=== PATIENT | male | born 1945 | race Caucasian/White ===

== ENCOUNTER 2017-03-04 09:35 | Emergency (ER) | payer OTHER ==
[~2017-03-04] VITALS: Ht 170.2 cm; Wt 91.2 kg
[~2017-03-04 09:35] MED LIST: AMLO10TA2 PO; ATOR-24 PO; KFL500 PO; LISI40TA PO; MULT-884 PO; OYST500T47 PO; PANT1TAB48 PO
[2017-03-04 09:38] VITALS: TEMP 37.5; Ht 170.2 cm; Wt 91.2 kg
[2017-03-04] MEDS ORDERED: SODIUM CHLORIDE 0.9% 1000ML 1,000 ML IV STA ×2 (10:01→11:08)
[2017-03-04] MEDS ORDERED: ONDANSETRON INJ 2 MG/ML 2 ML VIAL IV STA (10:01)
[2017-03-04 10:36] LABS: ISTAT CREATININE 6.4 mg/dl (0.6-1.3); ISTAT HEMOGLOBIN 13.6 g/dl (14.0-18.0); ISTAT IONIZED CALCIUM 0.98 mmol/l (1.12-1.32)
[2017-03-04 10:51] LABS: ALKALINE PHOSPHATASE 73 U/L (45-117); ALT/SGPT 143 U/L (12-78); AST/SGOT 177 U/L (15-37); BLOOD UREA NITROGEN 64 mg/dl (7-18); CALCIUM 7.9 mg/dl (8.5-10.1); CARBON DIOXIDE 19 mmol/L (21-32); CHLORIDE 93 mmol/L (98-107); GLUCOSE 115 mg/dl (70-99); SODIUM 128 mmol/L (136-145)
[2017-03-04 10:59] LABS: HEMATOCRIT 38.2 % (42-52); MEAN CELL VOLUME 85.3 fL (80-100); MEAN CORPUSCULAR HEMOGLOBIN 30.4 pg (25-34); MEAN CORPUSCULAR HGB CONC 35.6 g/dl (32-36); MEAN PLATELET VOLUME 11.1 fL (7.4-10.4); PLATELET COUNT 35 K/uL (130-400); RED BLOOD COUNT 4.48 M/uL (4.7-6.1); WHITE BLOOD COUNT 3.07 K/uL (4.8-10.8)
--- NOTE | 2017-03-04 11:26 | DIAGNOSTIC IMAGING REPORT ---
CT SCAN OF THE ABDOMEN AND PELVIS WITHOUT IV CONTRAST CLINICAL HISTORY: Generalized abdominal pain. Nausea and vomiting. COMPARISON STUDY: No priors. TECHNIQUE: CT scan of the abdomen and pelvis is performed from the lung bases to the proximal femora. Images are reviewed in the axial, sagittal, and coronal planes. IV contrast was not administered for this examination as per the referring clinician. Note that the examination was performed and significant suboptimal fashion without oral and IV contrast. The examination is also degraded by motion artifact. Automated dose control exposure was utilized. CT DOSE: 626.22 mGy.cm FINDINGS: Lung bases: The heart is normal in size and there is trace pericardial fluid versus pericardial thickening. The coronary arteries are densely calcified. Scarring versus atelectasis is present at the right lung base. No airspace consolidation is identified typical for pneumonia and there is no pleural effusion. A tiny hiatal hernia is identified. Liver: The unenhanced liver is normal in size, contour, and attenuation. There is no intrahepatic biliary ductal dilatation. Gallbladder: Unremarkable. Spleen: Normal in size and attenuation. Pancreas: The unenhanced pancreas is moderately atrophic and grossly unremarkable. Adrenal glands: A 1.7 cm left adrenal nodule meets CT criteria for a fat-containing adenoma. The right adrenal gland is unremarkable. Kidneys: The unenhanced kidneys demonstrate cortical atrophy and are without hydronephrosis. There are no renal calculi identified. There is no evidence of contour deforming renal mass lesion. There is mild nonspecific bilateral perinephric stranding. Abdominal vasculature: The abdominal aorta is normal in course and caliber noting advanced atherosclerotic calcification. Bowel: The small bowel and colon are normal in course and caliber. The appendix is well-visualized and normal. Peritoneum: There is no intraperitoneal free air or abdominal ascites. There is a small fat-containing umbilical hernia. Lymphadenopathy: None. Pelvic viscera: The prostate gland is mildly enlarged and heterogeneous. The bladder wall is mildly thickened and trabeculated suggesting the sequelae of chronic outlet obstruction. Skeletal structures: The skeletal structures are osteopenic. No lytic or blastic lesions are seen. There is mild lumbosacral spondylosis. Healed left-sided rib fractures are noted. IMPRESSION: 1. Significantly suboptimal examination without oral and IV contrast. The examination is also degraded by motion artifact. 2. There are no acute infectious or inflammatory findings in the abdomen or pelvis. 3. Additional findings as above. Electronically signed by: Carlton Harkins M.D. 03/04/2017 11:24 AM Dictated Date/Time: 03/04/2017 11:17 AM
[2017-03-04 11:53] VITALS: O2SAT 93
[2017-03-04] MEDS ORDERED: CALCIUM GLUCONATE 10% 10 ML VIAL IV STA (12:03)
[2017-03-04 12:07] LABS: COMPLETE YES; LYMPH ABS # 0.34 K/uL (1.2-3.4); VACUOLIZATION 3+; VARIANT LYM ABS # 0.71 K/uL
[2017-03-04 12:10] LABS: PARTIAL THROMBOPLASTIN RATIO 1.3; PROTHROMBIN TIME (PATIENT) 10.5 SECONDS (9.0-12.0)
[2017-03-04 12:13] LABS: LARGE PLATELETS 1+; PLT ESTIMATE DECREASED
--- NOTE | 2017-03-04 13:01 | EMERGENCY ROOM VISIT NOTE ---
History First contact with patient: 09:55 Chief Complaint: VOMITING Stated Complaint: V, D, WEAK X 5 DAYS Nursing Triage Summary: p[t reports vomiting and diarrhea for past 5 days gets sob when walking upstairs to shower unable to keep anything down History of Present Illness The patient is a 71 year old male who presents to the Emergency Room with complaints of nausea, vomiting, diarrhea for the past 5 days. Patient reports some associated low-grade fevers and chills, and his notes that he has had several periods where he will would have chills and then sweat to the point of soaking through his shirt. He states for the past 2 days he has been feeling more fatigued and generally weak, tired, dizzy. He denies abdominal pain, chest pain, shortness of breath, vomiting blood, blood in the stool, dysuria, hematuria. He does note that his urine has been darker than normal and he is urinating less frequently than normal. He describes the diarrhea as loose, not watery, foul-smelling, 2-3 episodes a day, exacerbated by any oral intake take. He also states he is unable to tolerate any food without vomiting. He was able to keep down his normal medications this morning with a few sips of water. Patient denies any recent antibiotic use, recent travel, denies any sick contacts with similar symptoms. He does note that he ate at [employer] just prior to his symptoms starting and states that he had some hamburgers, but felt that they were fully cooked. Review of Systems GENERAL: + Fevers, chills, malaise, fatigue, sweats. Denies unintentional weight changes. HEENT: Denies dizziness, visual problems, hearing loss, tinnitus. Denies difficulty swallowing or oral lesions. PULMONARY: Denies cough, shortness of breath, sputum production or hemoptysis. CARDIOVASCULAR: Denies chest pain, palpitations, dyspnea on exertion, orthopnea or peripheral edema. GASTROINTESTINAL: + Nausea, vomiting, diarrhea, bloating. Denies constipation or abdominal pain. GENITOURINARY: Denies dysuria, frequency, urgency or nocturia. + Dark urine, decreased urine output. NEUROLOGIC: Denies history of epilepsy, CVA, TIA or chronic headaches. MUSCULOSKELETAL: Denies history of joint tenderness/swelling. SKIN: Denies rashes or lesions. PSYCHIATRIC: Denies history of depression or mental illness. ENDOCRINE: Denies history of diabetes, thyroid disorders, abnormal hair growth or sexual dysfunction. Past Medical/Surgical History Medical Problems: (1) Acute renal failure (2) Thrombocytopenia Social History Smoking Status: Never Smoker Housing Status: lives with family Current/Historical Medications Scheduled Amlodipine Besylate (Norvasc), 10 MG PO DAILY Atorvastatin (Lipitor), 40 MG PO DAILY Lisinopril (Zestril), 40 MG PO DAILY Multiple Vitamin (Multi Vitamin Daily), 1 TAB PO DAILY Pantoprazole (Protonix), 40 MG PO DAILY Allergies Coded Allergies: No Known Allergies (Unverified , 03/04/17) Physical Exam Vital Signs Date Time Temp Pulse Resp B/P (MAP) Pulse Ox O2 Delivery O2 Flow Rate FiO2 03/04/17 13:41 94 16 134/70 95 Room Air 03/04/17 12:22 89 03/04/17 11:53 93 Nasal Cannula 2.0 03/04/17 11:51 88 16 132/67 93 Nasal Cannula 2.0 03/04/17 11:08 89 16 129/68 95 Room Air 03/04/17 09:38 37.5 109 22 126/68 94 Room Air Physical Exam CONSTITUTIONAL: No acute distress. Nontoxic appearing. Moderately dehydrated. Alert and oriented X 4 with normal affect. HEENT: Normocephalic, atraumatic. Pupils equal, round and reactive to light, EOMI. TMs normal. Pharynx normal. Dry mucus membranes. NECK: Supple, full active range of motion without discomfort. RESPIRATORY: Clear to auscultation bilaterally with no wheezing, crackles, rhonchi or stridor. Equal expansion bilaterally. CARDIOVASCULAR: Regular rate and rhythm with no murmurs, rubs or gallops. Normal peripheral perfusion. No edema. GASTROINTESTINAL: Soft, nontender, nondistended. No rebound or guarding. Hypoactive bowel sounds. MUSCULOSKELETAL: Full range of motion of all joints without discomfort. INTEGUMENTARY: No rash or other significant dermatologic conditions noted. NEUROLOGIC: Cranial nerves II-XII grossly intact. No focal neurologic deficits noted. Medical Decision & Procedures ER Provider Diagnostic Interpretation: CT SCAN OF THE ABDOMEN AND PELVIS WITHOUT IV CONTRAST CLINICAL HISTORY: Generalized abdominal pain. Nausea and vomiting. COMPARISON STUDY: No priors. TECHNIQUE: CT scan of the abdomen and pelvis is performed from the lung bases to the proximal femora. Images are reviewed in the axial, sagittal, and coronal planes. IV contrast was not administered for this examination as per the referring clinician. Note that the examination was performed and significant suboptimal fashion without oral and IV contrast. The examination is also degraded by motion artifact. Automated dose control exposure was utilized. CT DOSE: 626.22 mGy.cm FINDINGS: Lung bases: The heart is normal in size and there is trace pericardial fluid versus pericardial thickening. The coronary arteries are densely calcified. Scarring versus atelectasis is present at the right lung base. No airspace consolidation is identified typical for pneumonia and there is no pleural effusion. A tiny hiatal hernia is identified. Liver: The unenhanced liver is normal in size, contour, and attenuation. There is no intrahepatic biliary ductal dilatation. Gallbladder: Unremarkable. Spleen: Normal in size and attenuation. Pancreas: The unenhanced pancreas is moderately atrophic and grossly unremarkable. Adrenal glands: A 1.7 cm left adrenal nodule meets CT criteria for a fat-containing adenoma. The right adrenal gland is unremarkable. Kidneys: The unenhanced kidneys demonstrate cortical atrophy and are without hydronephrosis. There are no renal calculi identified. There is no evidence of contour deforming renal mass lesion. There is mild nonspecific bilateral perinephric stranding. Abdominal vasculature: The abdominal aorta is normal in course and caliber noting advanced atherosclerotic calcification. Bowel: The small bowel and colon are normal in course and caliber. The appendix is well-visualized and normal. Peritoneum: There is no intraperitoneal free air or abdominal ascites. There is a small fat-containing umbilical hernia. Lymphadenopathy: None. Pelvic viscera: The prostate gland is mildly enlarged and heterogeneous. The bladder wall is mildly thickened and trabeculated suggesting the sequelae of chronic outlet obstruction. Skeletal structures: The skeletal structures are osteopenic. No lytic or blastic lesions are seen. There is mild lumbosacral spondylosis. Healed left-sided rib fractures are noted. IMPRESSION: 1. Significantly suboptimal examination without oral and IV contrast. The examination is also degraded by motion artifact. 2. There are no acute infectious or inflammatory findings in the abdomen or pelvis. 3. Additional findings as above. Laboratory Results 03/04/17 09:50 Red Blood Count 4.48, Mean Corpuscular Volume 85.3, Mean Corpuscular Hemoglobin 30.4, Mean Corpuscular Hemoglobin Concent 35.6, Mean Platelet Volume 11.1 03/04/17 09:50 Test 03/04/17 09:50 03/04/17 10:19 03/04/17 10:23 03/04/17 11:58 White Blood Count 3.07 K/uL (4.8-10.8) Red Blood Count 4.48 M/uL (4.7-6.1) Hemoglobin 13.6 g/dL (14.0-18.0) Hematocrit 38.2 % (42-52) Mean Corpuscular Volume 85.3 fL (80-100) Mean Corpuscular Hemoglobin 30.4 pg (25-34) Mean Corpuscular Hemoglobin Concent 35.6 g/dl (32-36) Platelet Count 35 K/uL (130-400) Mean Platelet Volume 11.1 fL (7.4-10.4) RDW Standard Deviation 43.0 fL (36.4-46.3) RDW Coefficient of Variation 13.7 % (11.5-14.5) Neutrophils % (Manual) 60.0 % Lymphocytes % (Manual) 11.0 % Variant Lymphocytes % (manual) 23.0 % Monocytes % (Manual) 6.0 % Neutrophils # (Manual) 1.84 K/uL (1.4-6.5) Total Absolute Neutrophils 1.84 K/uL (1.4-6.5) Lymphocytes # (Manual) 0.34 K/uL (1.2-3.4) Absolute Variant Lymphocytes 0.71 K/uL Total Absolute Lymphocytes 1.04 K/uL (1.2-3.4) Monocytes # (Manual) 0.18 K/uL (0.11-0.59) Toxic Vacuolation 3+ Platelet Estimate DECREASED Large Platelets 1+ Prothrombin Time 10.5 SECONDS (9.0-12.0) Prothromb Time International Ratio 1.0 (0.9-1.1) Activated Partial Thromboplast Time 33.3 SECONDS (21.0-31.0) Partial Thromboplastin Ratio 1.3 Est Creatinine Clear Calc Drug Dose 11.4 ml/min Estimated GFR () 9.3 Estimated GFR (Non- 8.0 BUN/Creatinine Ratio 10.0 (10-20) Calcium Level 7.9 mg/dl (8.5-10.1) Total Bilirubin 2.0 mg/dl (0.2-1) Direct Bilirubin mg/dl (0-0.2) Aspartate Amino Transf (AST/SGOT) 177 U/L (15-37) Alanine Aminotransferase (ALT/SGPT) 143 U/L (12-78) Alkaline Phosphatase 73 U/L (45-117) Total Protein 7.1 gm/dl (6.4-8.2) Albumin 3.2 gm/dl (3.4-5.0) Lipase 1400 U/L (73-393) Bedside Lactic Acid Venous 1.20 mmol/L (0.90-1.70) Bedside Hemoglobin 13.6 g/dl (14.0-18.0) Bedside Hematocrit 40 % (42-52) Bedside Sodium 128 mEq/L (135-144) Bedside Potassium 3.8 mEq/L (3.3-5.0) Bedside Chloride 95 mEq/L (101-112) Bedside Total CO2 18 mEq/l (24-31) Anion Gap 21.0 mmol/L (16-25) Bedside Blood Urea Nitrogen 58 mg/dl (7-18) Bedside Creatinine 6.4 mg/dl (0.6-1.3) Bedside Glucose (other) 115 mg/dl (70-99) Bedside Ionized Calcium ([place]) 0.98 mmol/l (1.12-1.32) Medications Administered Medications (Trade) Dose Ordered Sig/Vidal Route Start Time Stop Time Status Last Admin Dose Admin Sodium Chloride 1,000 ml @ 999 mls/hr Q1H1M STAT IV 03/04/17 10:01 03/04/17 11:01 DC 03/04/17 10:01 999 MLS/HR Ondansetron HCl (Zofran Inj) 4 mg NOW STAT IV 03/04/17 10:01 03/04/17 10:04 DC 03/04/17 10:52 4 MG Sodium Chloride 1,000 ml @ 999 mls/hr Q1H1M STAT IV 03/04/17 11:08 03/04/17 12:08 DC 03/04/17 11:08 999 MLS/HR Calcium Gluconate (Calcium Gluconate 10%) 1,000 mg NOW STAT IV 03/04/17 12:03 03/04/17 12:04 DC 03/04/17 13:06 1,000 MG ECG Indication: vomiting Rate (beats per minute): 95 Rhythm: normal sinus Findings: no acute ischemic change Medical Decision CC: Patient presenting with complaint of nausea, vomiting, diarrhea 5 days. Interpretation of Labs: Pancytopenia with low platelets, hyponatremia, hypocalcemia, acute renal failure with creatinine of 6.4 (previous baseline of 1.2 and no history of renal insufficiency), elevated liver enzymes and T bili, elevated lipase consistent with pancreatitis. Lactic acid within normal limits at 1.2 Differential Diagnosis: Includes, but not limited to gastroenteritis, gastritis , dehydration, electrolyte abnormality, cholecystitis, cholelithiasis, choledocholithiasis, pancreatitis, acute kidney injury, small bowel obstruction , diverticulitis, colitis infectious versus ischemic, sepsis. Summary: Patient was evaluated at bedside, history of physical exam performed. Patient is alert and in no acute distress, but appears to fatigued and feeling unwell. He also appears moderately dehydrated with dry skin and dry mucous membranes. He is afebrile on vital signs, noted to be mildly tachycardic in the low 100s. He has no complaints of pain. His abdomen is soft and nontender. Hypoactive bowel sounds are noted. Orders were placed at bedside for labs, urinalysis, IV fluids, IV Zofran, CT abdomen/pelvis to evaluate for intra-abdominal pathology. Patient discussed with Dr. Perry, who agrees with my assessment and plan. Nursing staff alerted me to [id number] creatinine elevated at 6.4, CT study changed to noncontrast. Potassium level within normal limits. Labs reviewed, concerning for multiple abnormalities including severe acute renal failure, pancytopenia, elevated lipase, and elevated liver enzymes. Stool studies were ordered but unable to be collected due to patient's inability to provide a sample. CT reviewed, limited study due to noncontrast, however no obvious bowel obstruction or infectious etiology noted. Given the elevation of liver enzymes in the setting of probable acute pancreatitis, right upper quadrant ultrasound was also ordered to evaluate for choledocholithiasis/pancreatitis, this study is pending. Patient's tachycardia resolved with IV fluid bolus x 2L, he remains afebrile and continues to be relatively well-appearing with no significant complaints. Patient clinical condition does not appear consistent with sepsis or high suspicion for bacteremia at this time, however given the complaints of low- grade fevers and chills at home and the multiple lab abnormalities, blood cultures were added for good measure. However, I do not feel that there is indication to start empiric broad-spectrum antibiotics at this time, especially in light of his poor renal function. I spoke with Dr. Phipps, hospitalist, on the phone regarding admission of this patient. She agrees to see the patient. I also spoke with Dr. Bone, molding fitter, who is happy to be involved in the patient's care. After evaluation by our inpatient team, the patient was deemed too complex for admission at this hospital. Discussion with Dr. Perry, decision was made to transfer the patient to [facility] for a higher level of care and further evaluation. Patient reassessed multiple times throughout ED stay, he remained stable and without any significant complaints, also noting that he feels better after IV fluids and antiemetics, and his vital signs have remained stable. Impression Primary Impression: Acute renal failure Additional Impressions: Pancytopenia Pancreatitis Critical Care I have personally spent greater than 30 minutes of critical care time in the direct management of this patient. This includes bedside care, interpretation of diagnostic studies, and testing, discussion with consultants, patient, and family members, and other required patient management activities. This 30 minutes is in excess of all separately billable procedures. Departure Information Dispostion Transfer Acute Care Facility Condition [facility] Referrals Teofilo Bach III, M.D. (PCP) Patient Instructions [facility] Problem Qualifiers Primary Impression: Acute renal failure Acute renal failure type: unspecified Qualified Codes: N17.9 - Acute kidney failure, unspecified Additional Impressions: Pancreatitis Chronicity: acute Pancreatitis type: unspecified pancreatitis type Acute pancreatitis complication: unspecified Qualified Codes: K85.90 - Acute pancreatitis without necrosis or infection, unspecified
--- NOTE | 2017-03-04 14:04 | History and Physical ---
History & Physical Date & Time of Service: Mar 04, 2017 at 13:34 Chief Complaint: V, D, Weak X 5 Days Primary Care Physician: Teofilo Bach III, M.D. History of Present Illness Source: patient, family Social History Smoking Status: Never Smoker Immunizations History of Influenza Vaccine: Yes Influenza Vaccine Date: Jun 15, 2014 History of Pneumococcal: Yes Pneumococcal Date: Jul 10, 2015 Allergies Coded Allergies: No Known Allergies (Unverified , 03/04/17) Home Medications Scheduled Amlodipine Besylate (Norvasc), 10 MG PO DAILY Atorvastatin (Lipitor), 40 MG PO DAILY Lisinopril (Zestril), 40 MG PO DAILY Multiple Vitamin (Multi Vitamin Daily), 1 TAB PO DAILY Pantoprazole (Protonix), 40 MG PO DAILY Physical Exam Vital Signs Date Time Temp Pulse Resp B/P (MAP) Pulse Ox O2 Delivery O2 Flow Rate FiO2 03/04/17 12:22 89 03/04/17 11:53 93 Nasal Cannula 2.0 03/04/17 11:51 88 16 132/67 93 Nasal Cannula 2.0 03/04/17 11:08 89 16 129/68 95 Room Air 03/04/17 09:38 37.5 109 22 126/68 94 Room Air Diagnostics Laboratory Results Results Past 24 Hours Test 03/04/17 09:50 03/04/17 10:19 03/04/17 10:23 03/04/17 11:58 Range/Units White Blood Count 3.07 4.8-10.8 K/uL Red Blood Count 4.48 4.7-6.1 M/uL Hemoglobin 13.6 14.0-18.0 g/dL Hematocrit 38.2 42-52 % Mean Corpuscular Volume 85.3 80-100 fL Mean Corpuscular Hemoglobin 30.4 25-34 pg Mean Corpuscular Hemoglobin Concent 35.6 32-36 g/dl Platelet Count 35 130-400 K/uL Mean Platelet Volume 11.1 7.4-10.4 fL RDW Standard Deviation 43.0 36.4-46.3 fL RDW Coefficient of Variation 13.7 11.5-14.5 % Neutrophils % (Manual) 60.0 % Lymphocytes % (Manual) 11.0 % Variant Lymphocytes % (manual) 23.0 % Monocytes % (Manual) 6.0 % Neutrophils # (Manual) 1.84 1.4-6.5 K/uL Total Absolute Neutrophils 1.84 1.4-6.5 K/uL Lymphocytes # (Manual) 0.34 1.2-3.4 K/uL Absolute Variant Lymphocytes 0.71 K/uL Total Absolute Lymphocytes 1.04 1.2-3.4 K/uL Monocytes # (Manual) 0.18 0.11-0.59 K/uL Toxic Vacuolation 3+ Platelet Estimate DECREASED Large Platelets 1+ Prothrombin Time 10.5 9.0-12.0 SECONDS Prothromb Time International Ratio 1.0 0.9-1.1 Activated Partial Thromboplast Time 33.3 21.0-31.0 SECONDS Partial Thromboplastin Ratio 1.3 Sodium Level 128 136-145 mmol/L Potassium Level 4.0 3.5-5.1 mmol/L Chloride Level 93 98-107 mmol/L Carbon Dioxide Level 19 21-32 mmol/L Anion Gap 16.0 21.0 16-25 mmol/L Blood Urea Nitrogen 64 7-18 mg/dl Creatinine 6.40 0.60-1.40 mg/dl Est Creatinine Clear Calc Drug Dose 11.4 ml/min Estimated GFR () 9.3 Estimated GFR (Non- 8.0 BUN/Creatinine Ratio 10.0 10-20 Random Glucose 115 70-99 mg/dl Calcium Level 7.9 8.5-10.1 mg/dl Total Bilirubin 2.0 0.2-1 mg/dl Direct Bilirubin 0-0.2 mg/dl Aspartate Amino Transf (AST/SGOT) 177 15-37 U/L Alanine Aminotransferase (ALT/SGPT) 143 12-78 U/L Alkaline Phosphatase 73 45-117 U/L Total Protein 7.1 6.4-8.2 gm/dl Albumin 3.2 3.4-5.0 gm/dl Lipase 1400 73-393 U/L Bedside Lactic Acid Venous 1.20 0.90-1.70 mmol/L Bedside Hemoglobin 13.6 14.0-18.0 g/dl Bedside Hematocrit 40 42-52 % Bedside Sodium 128 135-144 mEq/L Bedside Potassium 3.8 3.3-5.0 mEq/L Bedside Chloride 95 101-112 mEq/L Bedside Total CO2 18 24-31 mEq/l Bedside Blood Urea Nitrogen 58 7-18 mg/dl Bedside Creatinine 6.4 0.6-1.3 mg/dl Bedside Glucose (other) 115 70-99 mg/dl Bedside Ionized Calcium ([place]) 0.98 1.12-1.32 mmol/l Microbiology Results 03/04/17 Blood Culture, Received Pending 03/04/17 Blood Culture, Received Pending Impression VTE Prophylaxis VTE Risk Assessment Done? Y/N: Yes Risk Level: Moderate
[2017-03-04 14:06] VITALS: BP 137/71; PULSE 103; O2SAT 94
--- NOTE | 2017-03-04 22:57 | Medical Consult ---
Consultation Date of Consultation: Mar 04, 2017. Attending Physician: Susan Skinner DO Reason for Consultation: Asked to evaluate patient for admission by ER physicia- Dr. Perry. History of Present Illness 71 yo M presents with 5 days of worsening nausea, vomiting and diarrhea that is severe rendering him completely intolerant of PO, even small sips of water. He states this began suddenly after visiting his newly born grandchild in the hospital, then proceeding to another town to care for his son's dogs. He had stopped by [employer] that afternoon and had two cheeseburgers and a Sprite which "tasted funny" and states that immediately upon returning home his symptoms started. He also reports some trouble breathing and dyspnea on exertin that is new for him as well as postural dizziness. He reports [place] frequent [place], [place] well as at a friend of his closer into town. He denies any recent known tick bites - last bitten last year and took abx-but states that he knows ticks are around. A full skin exam today was unremarkable for eschar or other rash or signs of rickettsial disease. He reports using public water and [place] sewer at his home. He denies any bloody diarrhea, but states that he tried Imodium and PeptoBismol and this made his stool slightly blackish in color. He denies any abdominal pain and has no fevers or chills, but does have some drenching sweats in the past month or so. He denies headache, visual changes, coughing, chest pain. He denies any recent travel history and no sick contacts, krystyna children. He denies any recent use of thiazines, antibiotics, heaprin or other blood thinners , quinidine, denies drinking gin and tonics, denies sulfa use, vanc use, denies any recent or past blood or platelet transfusions. He denies excessive alcohol use. In the ER he was found to be in acute renal failure with a creat of 6.4 with normal function at baseline as well as a new onset thrombocytopenia with 35K platelets, no petechiae noted, and not bleeding reported. He denies any weight loss. Worlkup also reveals a mild transminase, hyponatremia (128), and a lipase of 1400 with a normal lactate. Past Medical/Surgical History Medical Problems: (1) Pancreatitis Status: Acute (2) Pancytopenia Status: Acute Family History Patient reports no known family medical history. Social History Smoking Status: Never Smoker Smokeless Tobacco Use: No Alcohol Use: occasionally Drug Use: none Marital Status: Housing Status: lives with significant other Occupation Status: retired Allergies Coded Allergies: No Known Allergies (Unverified , 03/04/17) Home Medications Active Reported Multi Vitamin Daily (Multiple Vitamin) 1 Tab Tab 1 Tab PO DAILY Lipitor (Atorvastatin Calcium) 40 Mg Tab 40 Mg PO DAILY Norvasc (Amlodipine Besylate) 10 Mg Tab 10 Mg PO DAILY Zestril (Lisinopril) 40 Mg Tab 40 Mg PO DAILY Protonix (Pantoprazole) 40 Mg Tab 40 Mg PO DAILY Current Inpatient Medications Medications (Trade) Dose Ordered Sig/Vidal Route Start Time Stop Time Status Last Admin Dose Admin Sodium Chloride 1,000 ml @ 999 mls/hr Q1H1M STAT IV 03/04/17 10:01 03/04/17 11:01 DC 03/04/17 10:01 999 MLS/HR Ondansetron HCl (Zofran Inj) 4 mg NOW STAT IV 03/04/17 10:01 03/04/17 10:04 DC 03/04/17 10:52 4 MG Sodium Chloride 1,000 ml @ 999 mls/hr Q1H1M STAT IV 03/04/17 11:08 03/04/17 12:08 DC 03/04/17 11:08 999 MLS/HR Calcium Gluconate (Calcium Gluconate 10%) 1,000 mg NOW STAT IV 03/04/17 12:03 03/04/17 12:04 DC 03/04/17 13:06 1,000 MG Review of Systems Ten systems reviewed and negative except as indicated in HPI. Physical Exam Date Time Temp Pulse Resp B/P (MAP) Pulse Ox O2 Delivery O2 Flow Rate FiO2 03/04/17 14:06 103 16 137/71 94 Nasal Cannula 2.0 03/04/17 13:41 94 16 134/70 95 Room Air 03/04/17 12:22 89 03/04/17 11:53 93 Nasal Cannula 2.0 03/04/17 11:51 88 16 132/67 93 Nasal Cannula 2.0 03/04/17 11:08 89 16 129/68 95 Room Air 03/04/17 09:38 37.5 109 22 126/68 94 Room Air GEN: WNWD, in no acute distress, alert and appropriate, some conversational dyspnea was noted. HEENT: NC/AT, PERRL, normal sclerae, normal conjunctivae, MMM, pharynx non- acute. CARDIO: reg rate, S1/2 heard without m/g/r LUNGS: CTA bilaterally, no crackles, rales or wheezes, good diaphragmatic excursion ABD: soft, non-tender, non-distended, no rebound or guarding, +BS EXTREMITY: RP and DP palpable 2+ bilat, no LE swelling or edema, extremities are warm and well-perfused NEURO: CN 2-12 intact, sensation intact throughout, coordination intact (reflexes) BR 2+ bilat, knee 2+ bilat, achilles 2+ bilat MUSC: 5/5 strength throughout, no focal deficits SKIN: warm and dry and notably no petechiae or ecchymosis present; also no eschar or evidence of insect bite. Laboratory Results 03/04/17 09:50 Red Blood Count 4.48, Mean Corpuscular Volume 85.3, Mean Corpuscular Hemoglobin 30.4, Mean Corpuscular Hemoglobin Concent 35.6, Mean Platelet Volume 11.1 03/04/17 09:50 Test 03/04/17 09:50 03/04/17 10:19 03/04/17 10:23 03/04/17 11:58 White Blood Count 3.07 K/uL (4.8-10.8) Red Blood Count 4.48 M/uL (4.7-6.1) Hemoglobin 13.6 g/dL (14.0-18.0) Hematocrit 38.2 % (42-52) Mean Corpuscular Volume 85.3 fL (80-100) Mean Corpuscular Hemoglobin 30.4 pg (25-34) Mean Corpuscular Hemoglobin Concent 35.6 g/dl (32-36) Platelet Count 35 K/uL (130-400) Mean Platelet Volume 11.1 fL (7.4-10.4) RDW Standard Deviation 43.0 fL (36.4-46.3) RDW Coefficient of Variation 13.7 % (11.5-14.5) Neutrophils % (Manual) 60.0 % Lymphocytes % (Manual) 11.0 % Variant Lymphocytes % (manual) 23.0 % Monocytes % (Manual) 6.0 % Neutrophils # (Manual) 1.84 K/uL (1.4-6.5) Total Absolute Neutrophils 1.84 K/uL (1.4-6.5) Lymphocytes # (Manual) 0.34 K/uL (1.2-3.4) Absolute Variant Lymphocytes 0.71 K/uL Total Absolute Lymphocytes 1.04 K/uL (1.2-3.4) Monocytes # (Manual) 0.18 K/uL (0.11-0.59) Toxic Vacuolation 3+ Platelet Estimate DECREASED Large Platelets 1+ Peripheral Blood Smear Path Consult Prothrombin Time 10.5 SECONDS (9.0-12.0) Prothromb Time International Ratio 1.0 (0.9-1.1) Activated Partial Thromboplast Time 33.3 SECONDS (21.0-31.0) Partial Thromboplastin Ratio 1.3 Est Creatinine Clear Calc Drug Dose 11.4 ml/min Estimated GFR () 9.3 Estimated GFR (Non- 8.0 BUN/Creatinine Ratio 10.0 (10-20) Calcium Level 7.9 mg/dl (8.5-10.1) Total Bilirubin 2.0 mg/dl (0.2-1) Direct Bilirubin mg/dl (0-0.2) Aspartate Amino Transf (AST/SGOT) 177 U/L (15-37) Alanine Aminotransferase (ALT/SGPT) 143 U/L (12-78) Alkaline Phosphatase 73 U/L (45-117) Total Protein 7.1 gm/dl (6.4-8.2) Albumin 3.2 gm/dl (3.4-5.0) Lipase 1400 U/L (73-393) Bedside Lactic Acid Venous 1.20 mmol/L (0.90-1.70) Bedside Hemoglobin 13.6 g/dl (14.0-18.0) Bedside Hematocrit 40 % (42-52) Bedside Sodium 128 mEq/L (135-144) Bedside Potassium 3.8 mEq/L (3.3-5.0) Bedside Chloride 95 mEq/L (101-112) Bedside Total CO2 18 mEq/l (24-31) Anion Gap 21.0 mmol/L (16-25) Bedside Blood Urea Nitrogen 58 mg/dl (7-18) Bedside Creatinine 6.4 mg/dl (0.6-1.3) Bedside Glucose (other) 115 mg/dl (70-99) Bedside Ionized Calcium ([place]) 0.98 mmol/l (1.12-1.32) Date/Time Source Procedure Growth Status 03/04/17 10:14 Blood Blood Culture Pending Received Last 24 Hours Test 03/04/17 09:50 03/04/17 10:19 03/04/17 10:23 03/04/17 11:58 White Blood Count 3.07 K/uL Red Blood Count 4.48 M/uL Hemoglobin 13.6 g/dL Hematocrit 38.2 % Mean Corpuscular Volume 85.3 fL Mean Corpuscular Hemoglobin 30.4 pg Mean Corpuscular Hemoglobin Concent 35.6 g/dl Platelet Count 35 K/uL Mean Platelet Volume 11.1 fL RDW Standard Deviation 43.0 fL RDW Coefficient of Variation 13.7 % Neutrophils % (Manual) 60.0 % Lymphocytes % (Manual) 11.0 % Variant Lymphocytes % (manual) 23.0 % Monocytes % (Manual) 6.0 % Neutrophils # (Manual) 1.84 K/uL Total Absolute Neutrophils 1.84 K/uL Lymphocytes # (Manual) 0.34 K/uL Absolute Variant Lymphocytes 0.71 K/uL Total Absolute Lymphocytes 1.04 K/uL Monocytes # (Manual) 0.18 K/uL Toxic Vacuolation 3+ Platelet Estimate DECREASED Large Platelets 1+ Peripheral Blood Smear Path Consult Prothrombin Time 10.5 SECONDS Prothromb Time International Ratio 1.0 Activated Partial Thromboplast Time 33.3 SECONDS Partial Thromboplastin Ratio 1.3 Sodium Level 128 mmol/L Potassium Level 4.0 mmol/L Chloride Level 93 mmol/L Carbon Dioxide Level 19 mmol/L Anion Gap 16.0 mmol/L 21.0 mmol/L Blood Urea Nitrogen 64 mg/dl Creatinine 6.40 mg/dl Est Creatinine Clear Calc Drug Dose 11.4 ml/min Estimated GFR () 9.3 Estimated GFR (Non- 8.0 BUN/Creatinine Ratio 10.0 Random Glucose 115 mg/dl Calcium Level 7.9 mg/dl Total Bilirubin 2.0 mg/dl Direct Bilirubin mg/dl Aspartate Amino Transf (AST/SGOT) 177 U/L Alanine Aminotransferase (ALT/SGPT) 143 U/L Alkaline Phosphatase 73 U/L Total Protein 7.1 gm/dl Albumin 3.2 gm/dl Lipase 1400 U/L Bedside Lactic Acid Venous 1.20 mmol/L Bedside Hemoglobin 13.6 g/dl Bedside Hematocrit 40 % Bedside Sodium 128 mEq/L Bedside Potassium 3.8 mEq/L Bedside Chloride 95 mEq/L Bedside Total CO2 18 mEq/l Bedside Blood Urea Nitrogen 58 mg/dl Bedside Creatinine 6.4 mg/dl Bedside Glucose (other) 115 mg/dl Bedside Ionized Calcium ([place]) 0.98 mmol/l Assessment & Plan 71 yo M presents with acute onset renal failure and thrombocytopenia in the setting of nausea, vomiting and diarrhea with intolerance to PO x 5 days. 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 The patient possible exposure to E coli through hamburger meat eaten once week ago. No exposure to farm animals but he was taking care of some dogs in the last week. This would be along the lines of a shiga-toxin mediated syndrome. Additionally, however, he could have complement-mediated HUS with this recent diarrheal illness present also in the setting of pancreatitis. Another explanation would be rickettsial illness, specifically from anaplasmosis, babesiosis or RMSF. 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 Malignant transformation such as CLL or with a solid malignancy may explain the symptoms, however, no blasts were seen on peripheral smear. Other etiologies include HIV, ITP, HCV, HSV. These do not encompass all of the possible causes, however, this hospital does not have plasma exchange support available if needed. Therefore, it was decided between ID, Nephro, Hematology, myself and the ER physician to life flight him to a tertiary care center for further workup and treatment. Additionally is new onset hypoxia is concerning for poss pulmonary infarct in this setting. A CTA could not be performed because the contrast was contraindicated in renal failure , and the patient was set to leave very quickly so deferred further workup to accepting facility. Active prob list: 1. ARF 2. Acute thrombocytopenia 3. AGE 4. pancreatitis 5. Elevated transaminase 6. Hypocalcemia 7. Hyponatremia likely 2/2 clinical dehydration 8. Acute hypoxia Susan Skinner DO [facility] Hospitalist Additional Copies To Teofilo Bach III, M.D.
--- NOTE | 2017-03-08 07:56 | EMERGENCY ROOM VISIT NOTE ---
ED Visit Note First contact with patient: 09:55 APC Supervision Note: I interviewed and examined the patient. Discussed with KOBY Vidal and agree with findings and plan as documented in the note. Any exceptions or clarifications are listed here: [None] Pt was examined on two separate occasions by me. His VS remained stable. Lab work and imaging were reviewed. It seems that multiple systems are effected. Case was d/w Dr Skinner of the hospitalist service and agreed to evaluate. Upon hospitalist evaluation, it was recommended to transfer pt to higher level of care. Dr Young has accepted the pt in transfer. Pt and family are aware of the plan for [facility] air transport and agree. Documented By: Perla Perry
[2017-03-09 16:29] LABS: ANAPLASMA PHAGOCYTOPHIL IGG <1:64 (<1:64); ANAPLASMA PHAGOCYTOPHIL IGM <1:20 (<1:20)
== END 2017-03-04 14:20 | disposition short-term general hospital (02) ==
LOC: C.EDB 09:36 → CANBEDREQ 13:21 → C.EDB 14:20
DX: N17.9 Acute kidney failure, unspecified (principal); D61.818 Other pancytopenia; K85.90 Acute pancreatitis without necrosis or infection, unspecified; D69.6 Thrombocytopenia, unspecified; E86.0 Dehydration; R00.0 Tachycardia, unspecified